=== PATIENT | male | born 1960 | race Caucasian/White ===

== ENCOUNTER → 2023-11-05 | Outpatient (CLI) | payer BC ==
--- NOTE | 2023-11-05 14:38 | XR ---
EXAMINATION TYPE: XR shoulder complete LT DATE OF EXAM: 11/05/2023 COMPARISON: NONE HISTORY: Pain TECHNIQUE: Three views are submitted. FINDINGS: The osseous structures are intact. There is no acute fracture or dislocation. Severe hypertrophic ar thropathy of the AC joint. IMPRESSION: 1. Hypertrophic AC joint arthropathy correlate for rotator cuff disease or impingement.
== END | disposition home or self-care (01) ==
LOC: RADXRYALE 13:40
PROVIDERS: ATTEND Physician Assistant
DX: M19.012 Primary osteoarthritis, left shoulder (principal)